=== PATIENT | male | born 1995 | race Caucasian/White ===

== ENCOUNTER 2018-05-15 21:34 | Emergency (ER) | payer OTHER ==
--- NOTE | 2018-05-15 21:45 | ERPHSYRPT ---
- History of Present Illness Time Seen by Provider: 05/15/18 21:45 Source: patient, family Physician History: 22y/o white male presents with soa and mild generalized cp intermittently for 8 months. he began with soa yesterday but at 1pm this afternoon soa worsened with assoc cp. pt has a family h/o heart disease. pt drinks caffeinated drinks, chews tobacco and smokes. he himself does not have a pcp. no allergies and on no meds. Timing/Duration: yesterday Activities at Onset: none Severity of Dyspnea-Max: mild Severity of Dyspnea-Current: mild Possible Cause: occasional episodes (over last 8 months) Associated Symptoms: intermittent, chest pain/discomfort (mild), insomnia, No ankle swelling, No hemoptysis, No calf pain, No dizziness, No heaviness, No heart racing, No lightheadedness, No muscle spasms hands, No productive cough, No sweating, No tightness, No tingling face International travel in last 2 weeks: No Allergies/Adverse Reactions: No Known Drug Allergies Allergy (Verified 05/15/18 21:51) Home Medications: No Reportable Medications [No Reported Medications] 05/15/18 [History] - Review of Systems Constitutional: No Symptoms, No Fever, No Chills Eyes: No Symptoms, No Discharge, No Eye Pain Ears, Nose, & Throat: No Symptoms, No Ear Pain Respiratory: Dyspnea, No Cough, No Stridor, No Wheezing Cardiac: Chest Pain (mild ) Abdominal/Gastrointestinal: No Symptoms, No Abdominal Pain, No Nausea, No Vomiting, No Diarrhea Genitourinary Symptoms: No Symptoms, No Dysuria, No Frequency, No Hematuria Musculoskeletal: No Symptoms, No Back Pain, No Neck Pain, No Deformity, No Fall , No Injury Skin: No Symptoms Neurological: No Symptoms, Headache, No Dizziness Psychological: No Symptoms, No Alcohol Abuse, No Anxiety Endocrine: No Symptoms, No Polyuria, No Polydipsia Hematologic/Lymphatic: No Symptoms Immunological/Allergic: No Symptoms All Other Systems: Reviewed and Negative - Past Medical History Pertinent Past Medical History: Yes Neurological History: No Pertinent History ENT History: No Pertinent History Cardiac History: No Pertinent History Respiratory History: No Pertinent History Endocrine Medical History: No Pertinent History Musculoskeletal History: No Pertinent History GI Medical History: No Pertinent History History: No Pertinent History Psycho-Social History: No Pertinent History Male Reproductive Disorders: No Pertinent History - Past Surgical History Neuro Surgical History: No Pertinent History Cardiac: No Pertinent History Respiratory: No Pertinent History Gastrointestinal: No Pertinent History Genitourinary: No Pertinent History Musculoskeletal: No Pertinent History Male Surgical History: No Pertinent History - Social History Smoking Status: Current every day smoker - Nursing Vital Signs Nursing Vital Signs: Initial Vital Signs Pulse Rate 96 H 05/15/18 21:40 Respiratory Rate 12 05/15/18 21:40 Blood Pressure 140/89 05/15/18 21:40 O2 Sat by Pulse Oximetry 100 05/15/18 21:40 Pain Scale Pain Intensity 4 - Physical Exam General Appearance: no apparent distress, alert, anxiety, obese, No lethargy, No thin Eye Exam: PERRL/EOMI, eyes nml inspection Ears, Nose, Throat Exam: hearing grossly normal, normal ENT inspection, normal pharynx Neck Exam: normal inspection, non-tender, supple, full range of motion Respiratory Exam: normal breath sounds, chest tenderness (mild diffuse without radiation), lungs clear, airway intact, No respiratory distress, No accessory muscle use, No rhonchi, No wheezing, No stridor Cardiovascular/Chest Exam: normal heart sounds, regular rate/rhythm, normal peripheral pulses Abdominal/Gastrointestinal Exam: soft, normal bowel sounds, No tenderness, No guarding, No rebound Rectal Exam: not done, tenderness Extremity Exam: non-tender, normal range of motion, normal capillary refill, no calf tenderness, no pedal edema, pelvis stable Neurologic Exam: alert, oriented x 3, cooperative, 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, normal mood/affect, nml cerebellar function, nml station & gait Skin Exam: normal color, warm, dry Lymphatic Exam: No adenopathy SpO2 Interpretation: normal Oxygen Delivery: Room Air - Course Nursing assessment & vital signs reviewed: Yes EKG Interpreted by Me: RATE ([id number]), Sinus Rhythm, NORMAL AXIS, NORMAL INTERVALS, NORMAL QRS, NORMAL ST-T Ordered Tests: Active Orders 24 hr Category Date Time Status EKG-ER Only STAT Care 05/15/18 22:09 Active IV Insertion STAT Care 05/15/18 22:09 Active CHEST 1 VIEW (PORTABLE) Stat Exams 05/15/18 22:09 Taken CBC W DIFF Stat Lab 05/15/18 21:50 Completed CMP Stat Lab 05/15/18 21:50 Completed NT PRO BNP Stat Lab 05/15/18 21:50 Completed TROPONIN Q3H Lab 05/15/18 21:50 Completed TROPONIN Q3H Lab 05/16/18 01:15 Ordered TROPONIN Q3H Lab 05/16/18 04:15 Ordered TROPONIN Q3H Lab 05/16/18 07:15 Ordered TROPONIN Q3H Lab 05/16/18 10:15 Ordered Lab/Rad Data: Laboratory Result Diagrams 05/15/18 21:50 05/15/18 21:50 Laboratory Results 05/15/18 05/15/18 05/15/18 Range/Units 21:50 21:50 21:50 WBC 12.0 H (4.0-10.5) K/mm3 RBC 4.99 (4.1-5.6) M/mm3 Hgb 14.0 (12.5-18.0) gm/dl Hct 39.4 L (42-50) % MCV 79.0 (78-100) fl MCH 28.1 (26-32) pg MCHC 35.5 (32-36) g/dl RDW 12.5 (11.5-14.0) % Plt Count 325 (150-450) K/mm3 MPV 9.7 H (6-9.5) fl Gran % 58.1 (36.0-66.0) % Eos # (Auto) 0.28 (0-0.5) Absolute Lymphs (auto) 3.67 (1.0-4.6) Absolute Monos (auto) 1.03 (0.0-1.3) Lymphocytes % 30.6 (24.0-44.0) % Monocytes % 8.6 (0.0-12.0) % Eosinophils % 2.3 (0.00-5.0) % Basophils % 0.4 (0.0-0.4) % Absolute Granulocytes 6.95 H (1.4-6.9) Basophils # 0.05 (0-0.4) Sodium 141 (137-145) mmol/L Potassium 3.9 (3.5-5.1) mmol/L Chloride 104 (98-107) mmol/L Carbon Dioxide 27 (22-30) mmol/L Anion Gap 13.9 (5-15) MEQ/L BUN 9 (9-20) mg/dL Creatinine 0.85 (0.66-1.25) mg/dL Estimated GFR > 60.0 ML/MIN Glucose 81 (74-106) mg/dL Calcium 9.1 (8.4-10.2) mg/dL Total Bilirubin 0.20 (0.2-1.3) mg/dL AST 31 (17-59) U/L ALT 31 (0-50) U/L Alkaline Phosphatase 72 (38-126) U/L Troponin I < 0.012 (0.000-0.034) ng/mL NT-Pro-B Natriuret Pep 34.4 (0-450) pg/mL Serum Total Protein 7.4 (6.3-8.2) g/dL Albumin 4.5 (3.5-5.0) g/dL cxr no acute process - Progress Progress: improved, re-examined Air Movement: good Blood Culture(s) Obtained: No Antibiotics given: No Counseled pt/family regarding: lab results, diagnosis, need for follow-up, rad results - Departure Time of Disposition: 22:38 Departure Disposition: Home Clinical Impression: Shortness of breath, Chest pain Condition: Stable Critical Care Time: No Referrals: SCREEN,DRUG [NON-STAFF PHY W/O PRIVILEGES] - Additional Instructions: follow up with primary doctor for further management. stop smoking, chewing tobacco and minimize your caffeine intake
[2018-05-15 22:14] LABS: BASOPHIL % 0.4 % (0.0-0.4); Basophil (Absolute #) 0.05 (0-0.4); Eosinophil % 2.3 % (0.00-5.0); Eosinophil (Absolute #) 0.28 (0-0.5); Granulocyte Absolute (ANC) 6.95 (1.4-6.9); Granulocytes % 58.1 % (36.0-66.0); Hematocrit 39.4 % (42-50); Lymphocyte (Absolute #) 3.67 (1.0-4.6); Lymphocytes % 30.6 % (24.0-44.0); Mean Corpuscular Hemoglobin 28.1 pg (26-32); Mean Corpuscular Hgb Concent. 35.5 g/dl (32-36); Mean Platelet Volume 9.7 fl (6-9.5); Monocyte (Absolute #) 1.03 (0.0-1.3); Monocytes % 8.6 % (0.0-12.0); Platelet Count 325 K/mm3 (150-450); Red Blood Count 4.99 M/mm3 (4.1-5.6); Red Cell Distribution Width 12.5 % (11.5-14.0)
[2018-05-15 22:30] LABS: ALBUMIN 4.5 g/dL (3.5-5.0); ALKALINE PHOSPHATASE 72 U/L (38-126); ANION GAP 13.9 MEQ/L (5-15); BLOOD UREA NITROGEN 9 mg/dL (9-20); CHLORIDE 104 mmol/L (98-107); Calcium 9.1 mg/dL (8.4-10.2); Carbon Dioxide 27 mmol/L (22-30); Creatinine 1 0.85 mg/dL (0.66-1.25); Glucose 81 mg/dL (74-106); NT PRO BNP 34.4 pg/mL (0-450); Potassium 3.9 mmol/L (3.5-5.1); SGOT/AST 31 U/L (17-59); SGPT/ALT 31 U/L (0-50); SODIUM 141 mmol/L (137-145); Total Protein 7.4 g/dL (6.3-8.2)
[2018-05-15 22:43] VITALS: BP 135/114; PULSE 84; O2SAT 98
--- NOTE | 2018-05-16 08:49 | XRAY ---
Indication: Short of breath. Comparison: January 10, 2017. Portable chest again demonstrates normal heart, lungs, and bony thorax.
== END 2018-05-15 22:55 | disposition home or self-care (01) ==
LOC: ED 21:34
DX: R06.02 Shortness of breath (principal); R07.9 Chest pain, unspecified; G47.00 Insomnia, unspecified; Z82.49 Family history of ischemic heart disease and other diseases of the circulatory system
CPT/HCPCS: 36000; 36415; 71045; 80053; 83880; 84484; 85025; 93005; 99284